=== PATIENT | female | born 1985 | race Caucasian/White ===

== ENCOUNTER 2021-01-05 05:52 | Emergency (ER) | payer BC ==
[2021-01-05 06:17] LABS: RED BLOOD COUNT 5.37 M/UL (4.00-5.10); WHITE BLOOD COUNT 21.1 K/UL (4.5-11.0)
[2021-01-05 06:46] LABS: BUN/CREATININE RATIO 26 (0-10)
== END 2021-01-05 20:22 | disposition short-term general hospital (02) ==
LOC: ER1 05:52
PROVIDERS: Family Medicine
DX: R10.11 Right upper quadrant pain (principal); Z20.822 Contact with and (suspected) exposure to COVID-19; Z90.49 Acquired absence of other specified parts of digestive tract
CPT/HCPCS: 71045; 74150; 78226; 80053; 81001; 83605; 83690; 84703; 85025; 87040; 93005; 96365; 96375; 96376; 99284; A9537; J1170; J1885; J2270; J2405; J2543; J7030; Q9967; U0002